=== PATIENT | male | born 1980 | race Caucasian/White ===

== ENCOUNTER 2016-12-26 03:40 | Emergency (ER) ==
[2016-12-26 03:58] VITALS: BP 133/97; TEMP 99.3; BMI 24.4
== END 2016-12-26 04:06 | disposition left against medical advice (07) ==
LOC: ED 03:40
DX: R42 Dizziness and giddiness (principal); R53.1 Weakness; T67.5XXA Heat exhaustion, unspecified, initial encounter

== ENCOUNTER 2017-11-07 22:03 | Emergency (ER) ==
[2017-11-07 22:14] VITALS: BP 167/117; TEMP 99.1; BMI 30.5
--- NOTE | 2017-11-07 23:12 | ED.PDOC ---
General ED Provider: Dr. MANUEL ALANIZ Chief Complaint: Non-specific Complaint Stated Complaint: Patient is a 37 year old male who comes to the ER after stating he swallowed a small metal piece because he wanted to get out of [facility]. He states that he was also hungry. Time Seen by Physician: 23:06 Mode of Arrival: Police Information Source: Patient, Police Exam Limitations: No limitations Primary Care Provider: GHASSAN AZUL Nursing and Triage Documentation Reviewed and Agree: Yes Reviewed sepsis parameters & appropriate labs ordered?: No System Inflammatory Response Syndrome: Not Applicable Sepsis Protocol: For patient's 13 years and over: Temp is 96.8 and below OR 101 and greater Pulse >90 BPM Resp >20/minute Acutely Altered Mental Status Are patient's symptoms suggestive of a new infection, such as: -Pneumonia -Skin, Soft Tissue -Endocarditis -UTI -Bone, Joint Infection -Implantable Device -Acute Abdominal Infection -Wound Infection -Meningitis -Blood Stream Catheter Infection -Unknown System Inflammatory Response Syndrome: Not Applicable Review of Systems - Review Of Systems Constitutional: Reports: No symptoms Eyes: Reports: No symptoms Ears, Nose, Mouth, Throat: Reports: No symptoms Respiratory: Reports: No symptoms Cardiac: Reports: No symptoms GI: Reports: No symptoms : Reports: No symptoms Musculoskeletal: Reports: No symptoms Skin: Reports: No symptoms Neurological: Reports: No symptoms Endocrine: Reports: No symptoms Hematologic/Lymphatic: Reports: No symptoms All Other Systems: Reviewed and Negative Past Medical History - Past Medical History Previously Healthy: Yes Endocrine: Reports: None Cardiovascular: Reports: Hypertension Respiratory: Reports: None Hematological: Reports: None Gastrointestinal: Reports: None Genitourinary: Reports: None Neuro/Psych: Reports: Bipolar Disorder Musculoskeletal: Reports: None Cancer: Reports: None - Surgical History General Surgical History: Reports: Back Surgery - Family History Family History: Reports: Unknown - Social History Smoking Status: Never smoker Hx Substance Use: Yes (hx) Alcohol Screening: Occasionally - Immunizations Tetanus Shot up to Date: No (unknown) Physical Exam - Physical Exam Appearance: Well-appearing, No pain distress, Well-nourished Eyes: AMARI, EOMI, Conjunctiva clear ENT: Ears normal, Nose normal, Oropharynx normal Respiratory: Airway patent, Breath sounds clear, Breath sounds equal, Respirations nonlabored Cardiovascular: RRR, Pulses normal, No rub, No murmur GI/: Soft, Nontender, No masses, Bowel sounds normal, No Organomegaly Musculoskeletal: Normal strength, ROM intact, No edema, No calf tenderness Skin: Warm, Dry, Normal color Neurological: Sensation intact, Motor intact, Reflexes intact, Cranial nerves intact, Alert, Oriented Psychiatric: Affect appropriate, Mood appropriate Interpretation - Radiology Interpretation Radiology Interpretation By: Radiologist Re-Evaluation - Re-Evaluation Time of Re-Evaluation: 23:30 Vital Signs Stable: Yes (blood pressure improved. 130/89) Critical Care Note - Critical Care Note Total Time (mins): 0 Course - Course Orders, Labs, Meds: Orders Category Date Time Status CHEST, 1V AP ONLY Stat RADS 11/07/17 22:53 Completed KUB Stat RADS 11/07/17 22:17 Completed Vital Signs: Temp Pulse Resp BP Pulse Ox 11/07/17 22:06 99.1 F 83 20 167/117 H 98 Departure - Departure Time of Disposition: 23:39 Disposition: HOME SELF-CARE Discharge Problem: Foreign body alimentary tract Qualifiers: Encounter type: initial encounter Qualified Code(s): T18.9XXA - Foreign body of alimentary tract, part unspecified, initial encounter Instructions: Soft Tissue Foreign Body (ED), Anxiety (ED) Condition: Stable Pt referred to PMD for follow-up: Yes IPMP verified?: No Additional Instructions: Follow up with pcp as needed Allergies/Adverse Reactions: Allergies No Known Allergies Allergy (Verified 09/07/15 00:41) Home Medications: Ambulatory Orders 1 [No Reported Medications] 11/07/17 Disposition Discussed With: Patient, Family
--- NOTE | 2017-11-07 23:24 | DI ---
EXAM: Abdomen one-view HISTORY: Foreign body ingestion FINDINGS: Normal bowel gas pattern. No pathologic calcifications. No large free intraperitoneal ga s. No abundance of retained colonic stool. Skeleton appears normal. No radiopaque foreign body is se en. IMPRESSION: Negative exam.
--- NOTE | 2017-11-07 23:24 | DI ---
EXAM: Chest, one-view HISTORY: Foreign body ingestion FINDINGS: Cardiac and mediastinal contours are normal. Pulmonary vasculature is normal. Lungs are clear. Bony thorax is unremarkable. No radiopaque foreign body is seen. IMPRESSION: Within normal limits
== END 2017-11-07 23:47 | disposition home or self-care (01) ==
LOC: ED 22:03
DX: T18.9XXA Foreign body of alimentary tract, part unspecified, initial encounter (principal); I10 Essential (primary) hypertension
CPT/HCPCS: 99282

== ENCOUNTER 2017-12-19 21:08 | Emergency (ER) ==
[2017-12-19 21:22] VITALS: BP 143/90; TEMP 99.1; BMI 28.1
[2017-12-19] MEDS ORDERED: DILAUDID IM STA (21:25)
[2017-12-19] MEDS ORDERED: LIDOCAINE 2% 2ML SDV INJ STA (21:25)
[2017-12-19] MEDS ORDERED: ZOFRAN 4 MG/2 ML IM STA (21:25)
--- NOTE | 2017-12-19 21:33 | ED.PDOC ---
General ED Provider: Dr. VALERIA NORTON Chief Complaint: Finger Pain/Injury Stated Complaint: Patient had Fish hook Injury to right thumb 2 days ago, its is swollen tender, no draining pus. Time Seen by Physician: 21:39 Mode of Arrival: Walk-In Information Source: Patient Primary Care Provider: GHASSAN AZUL Nursing and Triage Documentation Reviewed and Agree: Yes Does patient meet sepsis criteria?: No If yes, has appropriate treatment been initiated?: No System Inflammatory Response Syndrome: Not Applicable Sepsis Protocol: For patient's 13 years and over: Temp is 96.8 and below OR 101 and greater Pulse >90 BPM Resp >20/minute Acutely Altered Mental Status Are patient's symptoms suggestive of a new infection, such as: -Pneumonia -Skin, Soft Tissue -Endocarditis -UTI -Bone, Joint Infection -Implantable Device -Acute Abdominal Infection -Wound Infection -Meningitis -Blood Stream Catheter Infection -Unknown Skin Complaint Exam - Skin/Soft Tissue Complaint/Exam Symptoms Are: Still present Timing: Constant Initial Severity: Severe Current Severity: Severe Character: Reports: Redness, Swelling, Raised, Painful Aggravating: Reports: Touch Alleviating: Reports: None Associated Signs and Symptoms: Reports: Drainage, Tenderness, Red streaks, Joint swelling. Denies: Fever, Chills, Itching, Bruising Related Surgical History: Reports: None Recent Exposure to Others w/Similar Symptoms: No Skin Findings: Present: Erythema, Induration, Fluctuant mass Differential Diagnoses: Abscess, Cellulitis Review of Systems - Review Of Systems Constitutional: Reports: No symptoms Eyes: Reports: No symptoms Ears, Nose, Mouth, Throat: Reports: No symptoms Respiratory: Reports: No symptoms Cardiac: Reports: No symptoms GI: Reports: No symptoms : Reports: No symptoms Musculoskeletal: Reports: No symptoms Skin: Reports: No symptoms Neurological: Reports: No symptoms Endocrine: Reports: No symptoms Hematologic/Lymphatic: Reports: No symptoms All Other Systems: Reviewed and Negative Past Medical History - Past Medical History Previously Healthy: Yes Endocrine: Reports: None Cardiovascular: Reports: Hypertension Respiratory: Reports: None Hematological: Reports: None Gastrointestinal: Reports: None Genitourinary: Reports: None Neuro/Psych: Reports: Bipolar Disorder Musculoskeletal: Reports: None Cancer: Reports: None - Surgical History General Surgical History: Reports: Back Surgery - Family History Family History: Reports: Unknown - Social History Smoking Status: Never smoker Hx Substance Use: No Alcohol Screening: Occasionally - Immunizations Tetanus Shot up to Date: Yes Physical Exam - Physical Exam Appearance: Well-appearing, No pain distress, Well-nourished Eyes: AMARI, EOMI, Conjunctiva clear ENT: Ears normal, Nose normal, Oropharynx normal Respiratory: Airway patent, Breath sounds clear, Breath sounds equal, Respirations nonlabored Cardiovascular: RRR, Pulses normal, No rub, No murmur GI/: Soft, Nontender, No masses, Bowel sounds normal, No Organomegaly Musculoskeletal: Normal strength, ROM intact, No edema, No calf tenderness Skin: Warm, Dry, Normal color Neurological: Sensation intact, Motor intact, Reflexes intact, Cranial nerves intact, Alert, Oriented Psychiatric: Affect appropriate, Mood appropriate Procedures - Incision and Drainage Instrument Used: 10 Blade I & D Procedure: Yes: Betadine Prep, Hibiclens Prep Lidocaine Used: Yes Type of Drainage: Present: Pus, Blood Irrigated: No Critical Care Note - Critical Care Note Total Time (mins): 30 Course - Course Orders, Labs, Meds: Orders Category Date Time Status Ceftriaxone Sodium [Rocephin] MEDS 12/19/17 22:16 Stat 1 gm IM ONCE STA Hydromorphone HCl [Dilaudid] MEDS 12/19/17 21:25 Stat 1 mg IM ONCE STA Lidocaine HCl [Lidocaine 2% 2Ml Sdv] MEDS 12/19/17 21:25 Stat 1 ml INJ ONCE STA Lidocaine HCl/Pf [Lidocaine HCl 1% Sdv] MEDS 12/19/17 22:16 Stat 2.1 ml IM ONCE STA Lidocaine HCl/Pf [Lidocaine HCl 1% Sdv] MEDS 12/19/17 21:34 Discontinued 5 ml .ROUTE .STK-MED ONE Ondansetron HCl/Pf [Zofran 4 mg/2 ml] MEDS 12/19/17 21:25 Stat 4 mg IM ONCE STA Sulfamethoxazole/Trimethoprim [Bactrim Ds 800/160 mg] MEDS 12/19/17 22:16 Stat 1 tab PO ONCE STA Medications Discontinued Medications Generic Name Dose Route Start Last Admin Trade Name Freq PRN Reason Stop Dose Admin Hydromorphone HCl 1 mg 12/19/17 21:25 12/19/17 21:40 Dilaudid IM 12/19/17 21:26 1 mg ONCE STA Administration Lidocaine HCl 1 ml 12/19/17 21:25 Lidocaine 2% 2ml Sdv INJ 12/19/17 21:26 ONCE STA Ondansetron HCl 4 mg 12/19/17 21:25 12/19/17 21:41 Zofran 4 Mg/2 Ml IM 12/19/17 21:26 4 mg ONCE STA Administration Vital Signs: Temp Pulse Resp BP Pulse Ox 12/19/17 21:12 99.1 F 100 H 20 143/90 H 97 Departure - Departure Time of Disposition: 22:20 Disposition: HOME SELF-CARE Discharge Problem: Abscess of thumb, right Instructions: Abscess (ED) Condition: Stable Pt referred to PMD for follow-up: Yes IPMP verified?: No Additional Instructions: Keep hand elevated Tylenol prn take medication with food F/u with PMD Keep moving the thumb. Prescriptions: Cephalexin [Keflex] 500 mg PO Q12HR #20 capsule Sulfamethoxazole/Trimethoprim [Bactrim Ds 800/160 mg] 1 tab PO Q12HR #20 tablet Hydrocodone Bit/Acetaminophen [[place] 7.5-325] 1 each PO Q12H #10 tablet Allergies/Adverse Reactions: Allergies No Known Allergies Allergy (Verified 09/07/15 00:41) Home Medications: Ambulatory Orders Cephalexin [Keflex] 500 mg PO Q12HR #20 capsule 12/19/17 Hydrocodone Bit/Acetaminophen [[place] 7.5-325] 1 each PO Q12H #10 tablet Sulfamethoxazole/Trimethoprim [Bactrim Ds 800/160 mg] 1 tab PO Q12HR #20 tablet 12/19/17 Disposition Discussed With: Patient, Family
[2017-12-19] MEDS ORDERED: LIDOCAINE HCL 1% SDV ONE (21:34)
[2017-12-19] MEDS ORDERED: BACTRIM DS 800/160 MG PO STA (22:16)
[2017-12-19] MEDS ORDERED: LIDOCAINE HCL 1% SDV IM STA (22:16)
[2017-12-19] MEDS ORDERED: ROCEPHIN IM STA (22:16)
== END 2017-12-19 23:01 | disposition home or self-care (01) ==
LOC: ED 21:08
DX: L02.511 Cutaneous abscess of right hand (principal); S61.031A Puncture wound without foreign body of right thumb without damage to nail, initial encounter; W26.8XXA Contact with other sharp object(s), not elsewhere classified, initial encounter
CPT/HCPCS: 87070; 87186; 96372; 99283